=== PATIENT | male | born 1975 | race Two or more races ===

== ENCOUNTER 2022-03-15 03:25 | Inpatient (IN) | payer OTHER ==
[~2022-03-15] VITALS: Ht 167.6 cm; Wt 89.0 kg
[2022-03-15] VITALS (21 sets, daily range): BP systolic 91–144; BP diastolic 48–88
[2022-03-15] MEDS ORDERED: HYDROcodone/acetaminophen 5mg/325mg tablet PO ONE (03:55)
[2022-03-15] MEDS ORDERED: ketorolac trometh. 30mg/ml inj. IV ONE (03:55)
[2022-03-15] MEDS ORDERED: ondansetron/PF 4mg/2ml inj IV ONE (03:55)
--- NOTE | 2022-03-15 04:33 | NUR ---
Yolanda Ling, patients daughter. [phone] Will pick him up when ready for discharge.
[2022-03-15] MEDS ORDERED: proCHLORperazine 10 MG/2 ml inj IV ONE (04:35)
[2022-03-15] MEDS ORDERED: morphine 4 MG/ML inj SYRINge IV ONE (04:35)
[2022-03-15 04:36] LABS: BASOPHILS % (AUTO) 0.4 % (0-1); EOSINOPHILS # (AUTO) 0.1 X10'3 (0-0.9); EOSINOPHILS % (AUTO) 1.6 % (0-6); HEMATOCRIT 41.7 % (42.0-52.0); HEMOGLOBIN 14.1 g/dl (14.0-17.9); LYMPHOCYTES # (AUTO) 1.4 X10'3 (1.1-4.8); LYMPHOCYTES % (AUTO) 20.1 % (21-51); MEAN CORPUSCULAR HEMOGLOBIN 28.4 PG (27.0-31.0); MEAN CORPUSCULAR HGB CONC 33.9 g/dL (33.0-36.5); MEAN PLATELET VOLUME 6.8 FL (7.4-10.4); MONOCYTES # (AUTO) 0.4 X10'3 (0-0.9); NEUTROPHILS # (AUTO) 4.9 X10'3 (1.8-7.7); NEUTROPHILS % (AUTO) 71.9 % (42-75); PLATELET COUNT 248 X10'3 (140-440); RED BLOOD COUNT 4.97 X10'6 (4.70-6.10); RED CELL DISTRIBUTION WIDTH 14.2 % (11.5-14.5); WHITE BLOOD COUNT 6.8 X10'3 (4.5-11.0)
[2022-03-15 04:42] LABS: CLARITY,URINE CLEAR (Clear); COLOR,URINE YELLOW (Yellow); GLUCOSE, URINE NEGATIVE (Neg); KETONES,URINE NEGATIVE (Neg); LEUKOCYTE ESTERASE ,URINE NEGATIVE (Neg); NITRITES, URINE NEGATIVE (Neg); OCCULT BLOOD,URINE NEGATIVE (Neg); PROTEIN,URINE NEGATIVE (Neg); UROBILINOGEN,URINE 0.2 E.U/dL (0.2-1.0)
[2022-03-15 04:44] LABS: UA COLLECTION TYPE CLN CATCH MIDSTREAM
[2022-03-15 04:53] LABS: ALANINE AMINOTRANSFERASE 89 U/L (12-78); ALBUMIN 4.1 G/DL (3.4-5.0); ALKALINE PHOSPHATASE 104 IU/L (46-116); ANION GAP 9 (8-16); ASPARTATE AMINO TRANSFERASE 28 U/L (10-37); BILIRUBIN,TOTAL 0.3 MG/DL (0.1-1.0); BLOOD UREA NITROGEN 30 MG/DL (7-18); BUN/CREATININE RATIO 24.6 (5.4-32.0); CALCIUM 8.8 MG/DL (8.5-10.1); CHLORIDE 104 MMOL/L (99-107); CREATININE 1.22 MG/DL (0.60-1.10); GLUCOSE 150 MG/DL (70-104); POTASSIUM 3.8 MMOL/L (3.5-5.1); SODIUM 140 MMOL/L (135-145); TOTAL CARBON DIOXIDE 27.2 MMOL/L (24-32); TOTAL PROTEIN 8.2 G/DL (6.4-8.2); eGFR 65 ML/MIN
[2022-03-15 04:55] LABS: LIPASE 175 U/L (73-393)
[2022-03-15] MEDS ORDERED: normal saline 1000ml 1,000 ML IV ONE ×2 (05:05→07:15)
[2022-03-15] MEDS ORDERED: famotidine/PF 10 mg/ml inj IV ONE (05:05)
[2022-03-15] MEDS ORDERED: pantoprazole 40MG/NS 100ML BAG 100 ML IV ONE (05:05)
--- NOTE | 2022-03-15 05:41 | NUR ---
Ultrasound at bedside
[2022-03-15] MEDS ORDERED: normal saline 1000ML IV soln IVB ONE (07:15)
[2022-03-15] MEDS ORDERED: acetaminophen 325mg tablet PO PRN (10:30)
[2022-03-15] MEDS ORDERED: magnesium hydroxide 30ml (MOM) UD suspension PO PRN (10:30)
[2022-03-15] MEDS ORDERED: potassium CL 10mEq/100ml bag 100 ML IV PRN (10:30)
[2022-03-15] MEDS ORDERED: POTASSIUM BICARB 20meq eff tab 20 MEQ TABLET.EFF PO PRN ×2 (10:30)
[2022-03-15] MEDS: normal saline 1000ml 1,000 ML IV SCH ×3 (10:30→20:30)
[2022-03-15] MEDS ORDERED: HYDROcodone/acetaminophen 5mg/325mg tablet PO PRN (10:30)
[2022-03-15] MEDS ORDERED: ondansetron/PF 4mg/2ml inj IV PRN ×2 (10:30→15:45)
[2022-03-15] MEDS ORDERED: mag hydrox/Alum hydrox/simeth 30ml oral suspension PO PRN (10:30)
[2022-03-15] MEDS ORDERED: magnesium 2GM in 50ml NS 50 ML IV PRN (10:30)
[2022-03-15] MEDS ORDERED: magnesium 4gm in 100ml NS 100 ML IV PRN (10:30)
[2022-03-15] MEDS ORDERED: morphine 2 MG/ML inj. syringe IV PRN ×3 (10:30→15:45)
--- NOTE | 2022-03-15 11:57 | NUR ---
Received report from YOON Causey. All questions answered.
--- NOTE | 2022-03-15 14:30 | NUR ---
Dr. Delarosa bedside to discuss surgery with patient.
--- NOTE | 2022-03-15 14:35 | NUR ---
Patient to OR. Vital signs stable.
[2022-03-15] MEDS ORDERED: BUPIVAcaine/PF 2.5mg/ml (0.25%) 10ml vial ONE (14:47)
[2022-03-15] MEDS ORDERED: fentaNYL/PF 50MCG/1 ML 2ML syringe ONE (15:32)
[2022-03-15] MEDS ORDERED: midazolam 1 mg/ML 2ml injection ONE (15:32)
[2022-03-15] MEDS ORDERED: propofol inj 20 ML IV ONE (15:33)
[2022-03-15] MEDS ORDERED: morphine 4 MG/ML inj SYRINge IV PRN (15:45)
[2022-03-15] MEDS ORDERED: proCHLORperazine 10 MG/2 ml inj IV PRN (15:45)
[2022-03-15] MEDS ORDERED: ringers solution, lacted 1,000 ML IV SCH (15:45)
[2022-03-15] MEDS ORDERED: meperidine/PF 25mg/ml syringe IV PRN ×3 (15:45)
[2022-03-15] MEDS ORDERED: dexamethasone sod phosphate 4mg/ml inj. ONE (15:51)
[2022-03-15] MEDS ORDERED: rocuronium 10mg/ml inj IV ONE (15:51)
[2022-03-15] MEDS ORDERED: ondansetron/PF 4mg/2ml inj ONE (15:51)
[2022-03-15] MEDS ORDERED: glycopyrrolate 0.2mg/ml inj ONE (15:52)
[2022-03-15] MEDS ORDERED: neostigmine methylsulfate 1 MG/ML 10ml vial ONE (15:52)
[2022-03-15] MEDS: piperacillin/tazo 4.5gm/100ml 100 ML IV SCH (16:00)
[2022-03-15] MEDS ORDERED: hydrALAZINE 20mg/ml inj. IV ONE (16:21)
--- NOTE | 2022-03-15 17:00 | NUR ---
Received from OR via anjana, accompanied by Anesthesiologist and report given by Froy Anesthesiologist. PATIENT WAKING UP, DENIES PAIN, V/S WNL, PIV 20G SOTO RENTERIA SITES BANDAIDS CDI TO ABDOMEN. Addendum: 03/15/22 at 1725 by Blaine Coppola RN Amended: Links added.
[2022-03-15] MEDS ORDERED: HYDROcodone/acetaminophen 10/325mg tab PO PRN (17:45)
--- NOTE | 2022-03-15 18:45 | NUR ---
PATIENT HAS MET ALL CRITERIA FOR TRANSFER TO THE SURGICAL FLOOR. VSS. DRESSINGS INTACT. BED LOW, CALL LIGHT PRESENT AND 2 RAILS UP. RN PRESENT TO ACCEPT CARE OF PATIENT AND REPORT HAS BEEN CALLED. ALL QUESTIONS ANSWERED TO ACCEPTING RN. Addendum: 03/15/22 at 1914 by Blaine Coppola RN Amended: Links added.
--- NOTE | 2022-03-15 19:00 | NUR ---
Patient in room ORTHO 4013. I have received report from YOON Guido and had the opportunity to ask questions and assume patient care.
[2022-03-15] MEDS: K and/or MAG REPLACEMENT MC SCH (20:00)
[2022-03-15] MEDS ORDERED: enoxaparin 40mg/0.4ml syringe SQ SCH (20:00)
[2022-03-15] MEDS: docusate sod 100mg capsule PO SCH (20:06)
[2022-03-15] MEDS: HYDROcodone/acetaminophen 10/325mg tab PO PRN (21:58)
[2022-03-16] MEDS: piperacillin/tazo 4.5gm/100ml 100 ML IV SCH ×2 (00:50→07:14)
[2022-03-16 02:00] VITALS: BP 95/55
[2022-03-16 06:00] VITALS: BP 107/58
[2022-03-16] MEDS: normal saline 1000ml 1,000 ML IV SCH ×2 (06:30→07:13)
--- NOTE | 2022-03-16 06:33 | NUR ---
Problems reprioritized. Patient report given, questions answered & plan of care reviewed with YOON Freeman.
--- NOTE | 2022-03-16 06:57 | NUR ---
Patient in room ORTHO 4013. I have received report from YOON Mazariegos and had the opportunity to ask questions and assume patient care.
[2022-03-16] MEDS: K and/or MAG REPLACEMENT MC SCH (07:08)
[2022-03-16] MEDS: docusate sod 100mg capsule PO SCH (07:14)
[2022-03-16] MEDS: HYDROcodone/acetaminophen 10/325mg tab PO PRN (07:15)
[2022-03-16 07:43] LABS: BASOPHILS % (AUTO) 0.1 % (0-1); EOSINOPHILS % (AUTO) 0 % (0-6); HEMOGLOBIN 13.2 g/dl (14.0-17.9); LYMPHOCYTES # (AUTO) 0.7 X10'3 (1.1-4.8); LYMPHOCYTES % (AUTO) 8.9 % (21-51); MEAN CORPUSCULAR HEMOGLOBIN 28.8 PG (27.0-31.0); MEAN CORPUSCULAR HGB CONC 33.7 g/dL (33.0-36.5); MEAN CORPUSCULAR VOLUME 85.4 FL (78-98); MEAN PLATELET VOLUME 7.1 FL (7.4-10.4); MONOCYTES # (AUTO) 0.3 X10'3 (0-0.9); MONOCYTES % (AUTO) 4.1 % (2-12); NEUTROPHILS # (AUTO) 7.2 X10'3 (1.8-7.7); NEUTROPHILS % (AUTO) 86.9 % (42-75); PLATELET COUNT 226 X10'3 (140-440); RED BLOOD COUNT 4.57 X10'6 (4.70-6.10); RED CELL DISTRIBUTION WIDTH 14.3 % (11.5-14.5); WHITE BLOOD COUNT 8.3 X10'3 (4.5-11.0)
[2022-03-16 08:13] LABS: ALANINE AMINOTRANSFERASE 99 U/L (12-78); ALBUMIN 3.4 G/DL (3.4-5.0); ALBUMIN/GLOBULIN RATIO 0.9 (1.1-1.5); ALKALINE PHOSPHATASE 89 IU/L (46-116); ANION GAP 9 (8-16); ASPARTATE AMINO TRANSFERASE 44 U/L (10-37); BILIRUBIN,TOTAL 0.6 MG/DL (0.1-1.0); BLOOD UREA NITROGEN 16 MG/DL (7-18); BUN/CREATININE RATIO 15.7 (5.4-32.0); CALCIUM 8.6 MG/DL (8.5-10.1); CHLORIDE 107 MMOL/L (99-107); CREATININE 1.02 MG/DL (0.60-1.10); GLUCOSE 126 MG/DL (70-104); MAGNESIUM 2.2 MG/DL (1.5-2.4); SODIUM 139 MMOL/L (135-145); TOTAL CARBON DIOXIDE 23.4 MMOL/L (24-32); eGFR 79 ML/MIN
[2022-03-16 10:00] VITALS: BP 116/66
[2022-03-16] MEDS ORDERED: HYDR-3972 PO (10:02)
--- NOTE | 2022-03-16 14:46 | NUR ---
Patient discharged at 12:45 with instructions and verbalizing understanding of instructions, in wheelchair accompanied by nursing staff. Patient was going home via private vehicle accompanied by family member. All lines have been removed including PIV with cannula intact. New medications have been escripted to preferred pharmacy, education has been provided and all questions have been answered. Patient was instructed to follow up with Dr. Delarosa in 1 week. Patient is stable and appropriate for discharge.
== END 2022-03-16 12:00 | disposition home or self-care (01) | DRG 417 ==
LOC: ER 03:25 → ED HOLD 10:33 → ORTHO 4S 18:45
PROVIDERS: ADMIT Family Medicine; ATTEND Family Medicine
PROC: 0WQF4ZZ Repair Abdominal Wall, Percutaneous Endoscopic Approach (ICD-10-PCS; 2022-03-15)
PROC: 0FT44ZZ Resection of Gallbladder, Percutaneous Endoscopic Approach (ICD-10-PCS; principal; 2022-03-15 15:40)
DX: K80.62 Calculus of gallbladder and bile duct with acute cholecystitis without obstruction (principal); N17.0 Acute kidney failure with tubular necrosis; R74.01 Elevation of levels of liver transaminase levels; E86.0 Dehydration; Z20.822 Contact with and (suspected) exposure to COVID-19; K42.9 Umbilical hernia without obstruction or gangrene; K82.8 Other specified diseases of gallbladder
CPT/HCPCS: 96365; 96375; 99285; Z7506; Z7508; 36415; 74176; 76700; 80053; 81003; 83690; 83735; 84484; 85025; 87081; 87635; A4215; A4615; A4618; A7000; C9113; C9803; G0378; J0360; J0780; J1100; J1650; J1885; J2175; J2250; J2270; J2405; J2543; J2704; J2710; J3010; J3490; J7030; J7120